=== PATIENT | female | born 1985 | race Caucasian/White ===

== ENCOUNTER 2017-01-31 08:55 | Outpatient (CLI) | payer BC ==
[2017-02-02 08:16] LABS: TEST RESULT REPORT (())
== END 2017-01-31 08:56 | disposition home or self-care (01) ==
LOC: LAB.WCP 08:55
PROVIDERS: ATTEND Physician Assistant Medical
DX: Z71.89 Other specified counseling (principal); Z71.9 Counseling, unspecified
CPT/HCPCS: 36415; 81599; 86317; 86706

== ENCOUNTER 2017-03-04 08:00 | Outpatient (CLI) | payer BC | END 2017-03-04 08:01 | disposition home or self-care (01) | DX: Z36 Encounter for antenatal screening of mother (principal) ==

== ENCOUNTER 2017-03-16 13:40 | Outpatient (CLI) | payer BC ==
[2017-03-16 14:01] LABS: BASOPHILS % (AUTO) 0.3 %; EOSINOPHILS # (AUTO) 0.1 10^3/uL (0.0-0.7); EOSINOPHILS % (AUTO) 0.7 %; HCT - HEMATOCRIT 39.2 % (37.0-47.0); HGB - HEMOGLOBIN 13.7 g/dL (12.0-16.0); LYMPHOCYTES # (AUTO) 2.5 10^3/uL (1.5-3.5); LYMPHOCYTES % (AUTO) 20.5 %; MEAN CORPUSCULAR HEMOGLOBIN 31.6 pg (27.0-31.0); MEAN CORPUSCULAR HGB CONC 34.9 g/dL (32.0-36.0); MEAN CORPUSCULAR VOLUME 90.5 fL (81.0-99.0); MONOCYTES # (AUTO) 0.6 10^3/uL (0.0-1.0); MONOCYTES % (AUTO) 5.4 %; NEUTROPHILS # (AUTO) 8.8 10^3/uL (1.5-6.6); NEUTROPHILS % (AUTO) 73.1 %; RED BLOOD COUNT 4.33 10^6/uL (4.20-5.40); RED CELL DISTRIBUTION WIDTH 13.7 % (12.0-15.0)
[2017-03-16 14:56] LABS: BILIRUBIN,URINE NEGATIVE (NEGATIVE)
[2017-03-16 16:03] LABS: WBC,URINE 0-3 /HPF (0-5)
== END 2017-03-16 13:41 | disposition home or self-care (01) ==
LOC: LAB 13:40
PROVIDERS: ATTEND Nurse Practitioner Obstetrics & Gynecology
DX: Z36 Encounter for antenatal screening of mother (principal)
CPT/HCPCS: 36415; 81001; 85025; 86762; 86780; 86850; 86900; 86901; 87340; 87389

== ENCOUNTER 2017-04-17 18:13 | Outpatient (CLI) | payer BC ==
[2017-04-19 13:23] LABS: TEST RESULT REPORT (())
== END 2017-04-17 18:14 | disposition home or self-care (01) ==
LOC: LAB 18:13
PROVIDERS: ATTEND Nurse Practitioner Obstetrics & Gynecology
DX: Z36 Encounter for antenatal screening of mother (principal)
CPT/HCPCS: 36415; 81599; 82105; 82677; 84702; 86336

== ENCOUNTER 2017-08-24 20:20 | Emergency (ER) | payer BC ==
[2017-08-24 20:37] VITALS: BP 105/64
[2017-08-24] MEDS ORDERED: ACETAMINOPHEN 325 MG TABLET PO STA (20:38)
== END 2017-08-24 20:52 | disposition left against medical advice (07) ==
LOC: ED 20:20
DX: Z53.21 Procedure and treatment not carried out due to patient leaving prior to being seen by health care provider (principal)
CPT/HCPCS: 87070; 87430

== ENCOUNTER 2017-09-08 07:50 | Outpatient (CLI) | payer BC ==
[2017-09-08 08:56] LABS: ALBUMIN 2.7 g/dL (3.2-5.5); BILIRUBIN,DIRECT 0.1 mg/dL (0.1-0.5); BILIRUBIN,TOTAL 0.5 mg/dL (0.2-1.0); TOTAL PROTEIN 6.5 g/dL (6.7-8.2)
== END 2017-09-08 07:51 | disposition home or self-care (01) ==
LOC: LAB 07:50
PROVIDERS: ATTEND Midwife
DX: O26.619 Liver and biliary tract disorders in pregnancy, unspecified trimester (principal)
CPT/HCPCS: 36415; 80076; 81599; 82239